=== PATIENT | female | born 1965 | race Caucasian/White ===

== ENCOUNTER 2019-03-16 18:42 | Emergency (ER) | payer SELFPAY ==
[~2019-03-16] VITALS: Ht 157.5 cm; Wt 56.0 kg
[~2019-03-16 18:42] MED LIST: ATEN-51 PO; SITA100T11 PO; [UNRECOGNIZED DRUG - OTHER] PO
[2019-03-16 19:16] VITALS: BP 134/78; PULSE 72; RESP 16; Ht 157.5 cm; Wt 56.0 kg
== END 2019-03-16 23:38 | disposition left against medical advice (07) ==
LOC: E/R 18:42
DX: Z53.21 Procedure and treatment not carried out due to patient leaving prior to being seen by health care provider (principal)

== ENCOUNTER 2019-05-31 10:15 | Emergency (ER) | payer OTHER ==
[~2019-05-31] VITALS: Ht 162.6 cm; Wt 76.9 kg
[~2019-05-31 10:15] MED LIST changes: +IBUP-1542 PO
[2019-05-31 10:19] VITALS: Ht 162.6 cm; Wt 76.9 kg
[2019-05-31 14:16] VITALS: BP 118/73; PULSE 77; RESP 17
== END 2019-05-31 14:26 | disposition home or self-care (01) ==
LOC: E/R 10:15
DX: S16.1XXA Strain of muscle, fascia and tendon at neck level, initial encounter (principal); M54.6 Pain in thoracic spine; G89.29 Other chronic pain; R07.89 Other chest pain; I10 Essential (primary) hypertension; E11.9 Type 2 diabetes mellitus without complications; X58.XXXA Exposure to other specified factors, initial encounter; Y92.9 Unspecified place or not applicable; Z79.84 Long term (current) use of oral hypoglycemic drugs
CPT/HCPCS: 36415; 71045; 80048; 83880; 84484; 85025; 85610; 93005; 96374; J1885; Z7502